=== PATIENT | male | born 1965 | race Asian ===

== ENCOUNTER 2017-05-31 14:57 | Inpatient (IN) | payer MEDICAID ==
[~2017-05-31] VITALS: Ht 167.6 cm; Wt 95.5 kg
[~2017-05-31 14:57] MED LIST: ALBU8.5H8 INH; AMLO10TA PO; ATOR40TA PO; CLON0.1T PO; FAMO20TA8 PO; FLO110IN INH; FURO-149 PO; ISOS10TA8 PO; LABE100T PO; LISI-600 PO; PANT40TA4 PO; POTA-82 PO
[2017-05-31] MEDS ORDERED: aspirin 81mg tab.chew PO ONE (15:15)
[2017-05-31 15:25] LABS: BASOPHILS % (AUTO) 0.3 % (0-1); EOSINOPHILS # (AUTO) 0.2 X10'3 (0-0.9); EOSINOPHILS % (AUTO) 1.7 % (0-6); HEMATOCRIT 45.4 % (42.0-52.0); HEMOGLOBIN 15.8 g/dl (14.0-17.9); LYMPHOCYTES # (AUTO) 1.8 X10'3 (1.1-4.8); LYMPHOCYTES % (AUTO) 19.8 % (21-51); MEAN CORPUSCULAR HEMOGLOBIN 29.7 PG (27.0-31.0); MEAN CORPUSCULAR HGB CONC 34.9 % (33.0-36.5); MEAN CORPUSCULAR VOLUME 85.2 FL (78-98); MONOCYTES # (AUTO) 0.7 X10'3 (0-0.9); MONOCYTES % (AUTO) 7.5 % (2-12); NEUTROPHILS # (AUTO) 6.5 X10'3 (1.8-7.7); NEUTROPHILS % (AUTO) 70.7 % (42-75); PLATELET COUNT 147 X10'3 (140-440); RED BLOOD COUNT 5.33 X10'6 (4.70-6.10); RED CELL DISTRIBUTION WIDTH 15.8 % (11.5-14.5); WHITE BLOOD COUNT 9.2 X10'3 (4.5-11.0)
[2017-05-31] MEDS ORDERED: nitroGLYCERIN 1gm ointment UD TP ONE (15:25)
[2017-05-31] MEDS ORDERED: nitroGLYCERIN 0.4mg SUBLingual tab SL PRN (15:25)
[2017-05-31] MEDS ORDERED: furosemide 10 MG/1 ML 10ml inj IV ONE (15:30)
[2017-05-31 15:35] LABS: PARTIAL THROMBOPLASTIN TIME 27 SECONDS (22-32); PROTHROMBIN TIME 9.9 SECONDS (9.0-12.0)
[2017-05-31 15:47] LABS: ALANINE AMINOTRANSFERASE 68 U/L (12-78); ALBUMIN 2.8 G/DL (3.4-5.0); ALBUMIN/GLOBULIN RATIO 0.8 (1.1-1.5); ALKALINE PHOSPHATASE 89 IU/L (46-116); ANION GAP 2 (8-16); BILIRUBIN,TOTAL 1.5 MG/DL (0.1-1.0); BLOOD UREA NITROGEN 27 MG/DL (7-18); BUN/CREATININE RATIO 15.1 (5.4-32.0); CALCIUM 8.6 MG/DL (8.5-10.1); CHLORIDE 103 MMOL/L (99-107); CREATININE 1.79 MG/DL (0.60-1.10); GLUCOSE 143 MG/DL (70-104); POTASSIUM 3.4 MMOL/L (3.5-5.1); SODIUM 143 MMOL/L (135-145); TOTAL PROTEIN 6.2 G/DL (6.4-8.2); eGFR 40 ML/MIN
[2017-05-31 15:59] LABS: ASPARTATE AMINO TRANSFERASE 29 U/L (10-37)
[2017-05-31] MEDS ORDERED: LOSA50TA3 PO (16:18)
[2017-05-31 19:20] VITALS: BP 178/134
[2017-05-31] MEDS ORDERED: non-formulary drug (Albuterol Sulfate (Proair Hfa) 2 PUFFS) INH SCH (19:40)
[2017-05-31] MEDS ORDERED: albuterol 2.5 MG/3 ML nebule NEB PRN (19:45)
[2017-05-31] MEDS ORDERED: amLODIPine 5mg tablet PO ONE (19:50)
[2017-05-31] MEDS ORDERED: dextrose 50%-water 50ml dispensing syringe IV PRN ×2 (19:55)
[2017-05-31] MEDS ORDERED: MESSAGE TO PHARMACY PO ONE (19:55)
[2017-05-31] MEDS ORDERED: glucagon, human recombinant 1mg kit SUBCUT PRN (19:55)
[2017-05-31] MEDS ORDERED: dextrose ORAL solution 15 GM/59 ML bottle PO PRN ×2 (19:55)
[2017-05-31] MEDS: ISOSORBIDE MONONITRATE 10MG TABLET PO SCH (20:00)
[2017-05-31] MEDS: lisinopril 20mg tablet PO SCH (20:09)
[2017-05-31] MEDS: labetalol 100mg tablet PO SCH (20:09)
[2017-05-31] MEDS: enoxaparin 40mg/0.4ml syringe SUBCUT SCH (20:13)
[2017-05-31] MEDS: K and/or MAG REPLACEMENT MC SCH (20:50)
[2017-05-31] MEDS ORDERED: potassium Cl 40MEQ/NS 500ml 500 ML IV PRN ×2 (20:50)
[2017-05-31] MEDS ORDERED: potassium Cl 20 mEq SR tablet PO PRN (20:50)
[2017-05-31] MEDS ORDERED: amLODIPine 5mg tablet PO SCH (21:00)
[2017-05-31] MEDS: potassium Cl 20 mEq SR tablet PO PRN (21:35)
[2017-05-31] MEDS: insulin glargine (Lantus) pen - multi-dose SQ SCH (21:39)
[2017-05-31 22:00] VITALS: BP_SYST 165; BP_SYST 197; BP_DIAS 112; BP_DIAS 134
[2017-05-31] MEDS: acetaminophen 325mg tablet PO PRN (22:02)
[2017-06-01] VITALS (10 sets, daily range): BP systolic 139–205; BP diastolic 96–137
[2017-06-01] MEDS ORDERED: cloNIDine 0.1 mg tablet PO PRN (03:35)
[2017-06-01 05:07] LABS: BASOPHILS % (AUTO) 0.4 % (0-1); EOSINOPHILS # (AUTO) 0.1 X10'3 (0-0.9); EOSINOPHILS % (AUTO) 0.8 % (0-6); HEMATOCRIT 46.1 % (42.0-52.0); HEMOGLOBIN 15.9 g/dl (14.0-17.9); LYMPHOCYTES # (AUTO) 1.7 X10'3 (1.1-4.8); LYMPHOCYTES % (AUTO) 20.4 % (21-51); MEAN CORPUSCULAR HEMOGLOBIN 29.3 PG (27.0-31.0); MEAN CORPUSCULAR HGB CONC 34.5 % (33.0-36.5); MEAN PLATELET VOLUME 9.5 FL (7.4-10.4); MONOCYTES # (AUTO) 0.4 X10'3 (0-0.9); MONOCYTES % (AUTO) 5.1 % (2-12); NEUTROPHILS # (AUTO) 6.2 X10'3 (1.8-7.7); NEUTROPHILS % (AUTO) 73.3 % (42-75); PLATELET COUNT 127 X10'3 (140-440); RED BLOOD COUNT 5.42 X10'6 (4.70-6.10); RED CELL DISTRIBUTION WIDTH 15.7 % (11.5-14.5); WHITE BLOOD COUNT 8.5 X10'3 (4.5-11.0)
[2017-06-01 05:20] LABS: PROTHROMBIN TIME 9.9 SECONDS (9.0-12.0)
[2017-06-01 05:28] LABS: ALBUMIN 2.9 G/DL (3.4-5.0); ANION GAP 3 (8-16); BLOOD UREA NITROGEN 28 MG/DL (7-18); BUN/CREATININE RATIO 15.6 (5.4-32.0); CALCIUM 8.6 MG/DL (8.5-10.1); CHLORIDE 102 MMOL/L (99-107); CREATININE 1.79 MG/DL (0.60-1.10); GLUCOSE 185 MG/DL (70-104); MAGNESIUM 1.9 MG/DL (1.5-2.4); POTASSIUM 3.3 MMOL/L (3.5-5.1); SODIUM 140 MMOL/L (135-145); TOTAL CARBON DIOXIDE 34.6 MMOL/L (24-32); eGFR 40 ML/MIN
[2017-06-01] MEDS: acetaminophen 325mg tablet PO PRN (07:38)
[2017-06-01] MEDS: losartan 50mg tablet PO SCH (07:38)
[2017-06-01] MEDS: lisinopril 20mg tablet PO SCH ×2 (07:38→19:32)
[2017-06-01] MEDS: potassium Cl 20 mEq SR tablet PO SCH (07:38)
[2017-06-01] MEDS: labetalol 100mg tablet PO SCH ×2 (07:39→19:32)
[2017-06-01] MEDS: furosemide 40mg tablet PO SCH (07:40)
[2017-06-01] MEDS: atorvastatin 20mg tablet PO SCH (07:41)
[2017-06-01] MEDS: enoxaparin 40mg/0.4ml syringe SUBCUT SCH (07:50)
[2017-06-01] MEDS: K and/or MAG REPLACEMENT MC SCH (08:00)
[2017-06-01] MEDS ORDERED: non-formulary drug (Atorvastatin Calcium* (Lipitor*) 1 TAB) PO SCH (08:00)
[2017-06-01] MEDS: ISOSORBIDE MONONITRATE 10MG TABLET PO SCH ×2 (08:00→19:32)
[2017-06-01] MEDS ORDERED: non-formulary drug (Potassium Chloride 1 TAB) PO SCH (08:00)
[2017-06-01] MEDS: potassium Cl 20 mEq SR tablet PO PRN ×3 (09:07→21:16)
[2017-06-01] MEDS ORDERED: cloNIDine 0.1 mg tablet PO ONE ×2 (09:40→12:45)
[2017-06-01] MEDS ORDERED: amLODIPine 5mg tablet PO ONE (09:40)
[2017-06-01] MEDS: insulin Lispro (HumaLOG) vial - multi-dose SQ SCH ×2 (10:26→13:47)
[2017-06-01] MEDS ORDERED: HYDROchlorothiazide 25mg tablet PO ONE (13:00)
[2017-06-01] MEDS: amLODIPine 5mg tablet PO SCH (19:32)
[2017-06-01] MEDS: insulin glargine (Lantus) pen - multi-dose SQ SCH (21:15)
[2017-06-02] VITALS (9 sets, daily range): BP systolic 106–184; BP diastolic 76–124
[2017-06-02 07:22] LABS: BASOPHILS % (AUTO) 0.2 % (0-1); EOSINOPHILS # (AUTO) 0.1 X10'3 (0-0.9); EOSINOPHILS % (AUTO) 1.7 % (0-6); HEMOGLOBIN 15.8 g/dl (14.0-17.9); LYMPHOCYTES # (AUTO) 1.7 X10'3 (1.1-4.8); LYMPHOCYTES % (AUTO) 20.3 % (21-51); MEAN CORPUSCULAR HEMOGLOBIN 29.3 PG (27.0-31.0); MEAN CORPUSCULAR HGB CONC 34.3 % (33.0-36.5); MEAN CORPUSCULAR VOLUME 85.3 FL (78-98); MEAN PLATELET VOLUME 8.1 FL (7.4-10.4); MONOCYTES # (AUTO) 0.5 X10'3 (0-0.9); MONOCYTES % (AUTO) 6.1 % (2-12); NEUTROPHILS % (AUTO) 71.7 % (42-75); PLATELET COUNT 134 X10'3 (140-440); RED BLOOD COUNT 5.39 X10'6 (4.70-6.10); RED CELL DISTRIBUTION WIDTH 16.4 % (11.5-14.5); WHITE BLOOD COUNT 8.4 X10'3 (4.5-11.0)
[2017-06-02 07:34] LABS: ALANINE AMINOTRANSFERASE 58 U/L (12-78); ALBUMIN 2.8 G/DL (3.4-5.0); ALBUMIN/GLOBULIN RATIO 0.8 (1.1-1.5); ALKALINE PHOSPHATASE 75 IU/L (46-116); ANION GAP 1 (8-16); ASPARTATE AMINO TRANSFERASE 21 U/L (10-37); BILIRUBIN,TOTAL 1.6 MG/DL (0.1-1.0); BLOOD UREA NITROGEN 33 MG/DL (7-18); BUN/CREATININE RATIO 20.6 (5.4-32.0); CALCIUM 8.9 MG/DL (8.5-10.1); CHLORIDE 103 MMOL/L (99-107); GLUCOSE 138 MG/DL (70-104); POTASSIUM 3.5 MMOL/L (3.5-5.1); SODIUM 141 MMOL/L (135-145); TOTAL CARBON DIOXIDE 37.4 MMOL/L (24-32); TOTAL PROTEIN 6.2 G/DL (6.4-8.2); eGFR 46 ML/MIN
[2017-06-02] MEDS: furosemide 40mg tablet PO SCH (07:43)
[2017-06-02] MEDS: atorvastatin 20mg tablet PO SCH (07:43)
[2017-06-02] MEDS: losartan 50mg tablet PO SCH (07:43)
[2017-06-02] MEDS: amLODIPine 5mg tablet PO SCH ×2 (07:43→20:54)
[2017-06-02] MEDS: potassium Cl 20 mEq SR tablet PO SCH (07:44)
[2017-06-02] MEDS: labetalol 100mg tablet PO SCH ×2 (07:44→20:54)
[2017-06-02] MEDS: enoxaparin 40mg/0.4ml syringe SUBCUT SCH (07:44)
[2017-06-02] MEDS: ISOSORBIDE MONONITRATE 10MG TABLET PO SCH ×2 (07:44→20:55)
[2017-06-02] MEDS: lisinopril 20mg tablet PO SCH (07:44)
[2017-06-02] MEDS: K and/or MAG REPLACEMENT MC SCH (07:45)
[2017-06-02] MEDS: insulin Lispro (HumaLOG) vial - multi-dose SQ SCH ×3 (08:42→18:41)
[2017-06-02] MEDS: NIFEdipine XL 30mg tablet PO SCH (12:14)
[2017-06-02] MEDS: chlorthalidone 25mg tablet PO SCH (12:14)
[2017-06-02] MEDS ORDERED: normal saline 500ml IV soln 500 ML IV ONE (13:25)
[2017-06-02] MEDS: insulin glargine (Lantus) pen - multi-dose SQ SCH (20:51)
[2017-06-03] VITALS (7 sets, daily range): BP systolic 101–133; BP diastolic 73–85
[2017-06-03] MEDS: acetaminophen 325mg tablet PO PRN ×2 (01:56→13:12)
[2017-06-03] MEDS ORDERED: calcium carbonate 500mg chew tablet PO PRN (06:30)
[2017-06-03] MEDS: NIFEdipine XL 30mg tablet PO SCH (07:58)
[2017-06-03] MEDS: potassium Cl 20 mEq SR tablet PO SCH (07:59)
[2017-06-03] MEDS: labetalol 100mg tablet PO SCH ×2 (07:59→20:16)
[2017-06-03] MEDS: atorvastatin 20mg tablet PO SCH (07:59)
[2017-06-03] MEDS: K and/or MAG REPLACEMENT MC SCH (08:00)
[2017-06-03] MEDS: ISOSORBIDE MONONITRATE 10MG TABLET PO SCH ×2 (08:00→20:16)
[2017-06-03] MEDS: enoxaparin 40mg/0.4ml syringe SUBCUT SCH (08:00)
[2017-06-03] MEDS: furosemide 40mg tablet PO SCH (08:00)
[2017-06-03] MEDS: insulin Lispro (HumaLOG) vial - multi-dose SQ SCH ×3 (08:05→18:59)
[2017-06-03 08:18] LABS: ANION GAP 4 (8-16); BLOOD UREA NITROGEN 40 MG/DL (7-18); CALCIUM 8.9 MG/DL (8.5-10.1); CHLORIDE 104 MMOL/L (99-107); GLUCOSE 155 MG/DL (70-104); POTASSIUM 3.5 MMOL/L (3.5-5.1); SODIUM 142 MMOL/L (135-145); TOTAL CARBON DIOXIDE 33.8 MMOL/L (24-32); eGFR 36 ML/MIN
[2017-06-03] MEDS: chlorthalidone 25mg tablet PO SCH (10:10)
[2017-06-03] MEDS: losartan 50mg tablet PO SCH (10:10)
[2017-06-03] MEDS: amLODIPine 5mg tablet PO SCH (10:10)
[2017-06-03] MEDS: insulin glargine (Lantus) pen - multi-dose SQ SCH (20:58)
[2017-06-04] VITALS (8 sets, daily range): BP systolic 96–145; BP diastolic 67–96
[2017-06-04 07:27] LABS: ALBUMIN 2.9 G/DL (3.4-5.0); ANION GAP 6 (8-16); BLOOD UREA NITROGEN 52 MG/DL (7-18); BUN/CREATININE RATIO 23.6 (5.4-32.0); CALCIUM 8.7 MG/DL (8.5-10.1); CHLORIDE 104 MMOL/L (99-107); GLUCOSE 129 MG/DL (70-104); POTASSIUM 3.6 MMOL/L (3.5-5.1); SODIUM 145 MMOL/L (135-145); TOTAL CARBON DIOXIDE 35.5 MMOL/L (24-32); eGFR 32 ML/MIN
[2017-06-04] MEDS: atorvastatin 20mg tablet PO SCH (07:42)
[2017-06-04] MEDS: potassium Cl 20 mEq SR tablet PO SCH (07:42)
[2017-06-04] MEDS: NIFEdipine XL 30mg tablet PO SCH (07:42)
[2017-06-04] MEDS: labetalol 100mg tablet PO SCH ×2 (07:43→20:49)
[2017-06-04] MEDS: furosemide 40mg tablet PO SCH (07:43)
[2017-06-04] MEDS: enoxaparin 40mg/0.4ml syringe SUBCUT SCH (07:45)
[2017-06-04] MEDS: ISOSORBIDE MONONITRATE 10MG TABLET PO SCH ×2 (08:00→20:49)
[2017-06-04] MEDS: chlorthalidone 25mg tablet PO SCH (08:00)
[2017-06-04] MEDS: losartan 50mg tablet PO SCH (08:00)
[2017-06-04] MEDS: K and/or MAG REPLACEMENT MC SCH (08:00)
[2017-06-04] MEDS: insulin Lispro (HumaLOG) vial - multi-dose SQ SCH ×3 (08:56→18:45)
[2017-06-04 13:57] LABS: ALBUMIN 3.1 G/DL (3.4-5.0); ANION GAP 7 (8-16); BLOOD UREA NITROGEN 57 MG/DL (7-18); BUN/CREATININE RATIO 24.8 (5.4-32.0); CALCIUM 9.1 MG/DL (8.5-10.1); CHLORIDE 103 MMOL/L (99-107); GLUCOSE 120 MG/DL (70-104); POTASSIUM 3.6 MMOL/L (3.5-5.1); SODIUM 145 MMOL/L (135-145); TOTAL CARBON DIOXIDE 35.2 MMOL/L (24-32); eGFR 30 ML/MIN
[2017-06-04] MEDS: acetaminophen 325mg tablet PO PRN (20:49)
[2017-06-04] MEDS: insulin glargine (Lantus) pen - multi-dose SQ SCH (20:52)
[2017-06-05 03:00] VITALS: BP 123/79
[2017-06-05 05:04] LABS: ALBUMIN 3.2 G/DL (3.4-5.0); ANION GAP 4 (8-16); BLOOD UREA NITROGEN 53 MG/DL (7-18); BUN/CREATININE RATIO 26.5 (5.4-32.0); CHLORIDE 105 MMOL/L (99-107); GLUCOSE 130 MG/DL (70-104); POTASSIUM 3.8 MMOL/L (3.5-5.1); SODIUM 144 MMOL/L (135-145); TOTAL CARBON DIOXIDE 34.7 MMOL/L (24-32); eGFR 36 ML/MIN
[2017-06-05 05:30] VITALS: BP 156/106
[2017-06-05] MEDS: K and/or MAG REPLACEMENT MC SCH (06:44)
[2017-06-05 08:00] VITALS: BP_SYST 117; BP_SYST 125; BP_SYST 135; BP_DIAS 83; BP_DIAS 88; BP_DIAS 96
[2017-06-05] MEDS: ISOSORBIDE MONONITRATE 10MG TABLET PO SCH (08:00)
[2017-06-05] MEDS ORDERED: furosemide 20MG tablet PO SCH (08:00)
[2017-06-05] MEDS: NIFEdipine XL 30mg tablet PO SCH (08:19)
[2017-06-05] MEDS: furosemide 20MG tablet PO SCH ×2 (08:20→18:51)
[2017-06-05] MEDS: atorvastatin 20mg tablet PO SCH (08:20)
[2017-06-05] MEDS: labetalol 100mg tablet PO SCH ×2 (08:20→18:50)
[2017-06-05] MEDS: potassium Cl 20 mEq SR tablet PO SCH (08:20)
[2017-06-05] MEDS: enoxaparin 40mg/0.4ml syringe SUBCUT SCH (08:22)
[2017-06-05] MEDS: insulin Lispro (HumaLOG) vial - multi-dose SQ SCH ×2 (08:27→18:47)
[2017-06-05 11:00] VITALS: BP 142/97
[2017-06-05 15:00] VITALS: BP 141/95
== END 2017-06-05 19:15 | disposition home or self-care (01) | DRG 199 ==
LOC: ER 14:58 → ED HOLD 16:08 → PCU 3S 19:22
PROVIDERS: ADMIT Family Medicine; ATTEND Family Medicine
DX: I16.0 Hypertensive urgency (principal); E11.22 Type 2 diabetes mellitus with diabetic chronic kidney disease; I50.9 Heart failure, unspecified; I11.0 Hypertensive heart disease with heart failure; I71.2 Thoracic aortic aneurysm, without rupture; I13.0 Hypertensive heart and chronic kidney disease with heart failure and stage 1 through stage 4 chronic kidney disease, or unspecified chronic kidney disease; E78.00 Pure hypercholesterolemia, unspecified; E78.5 Hyperlipidemia, unspecified; G47.33 Obstructive sleep apnea (adult) (pediatric); I25.10 Atherosclerotic heart disease of native coronary artery without angina pectoris; I45.10 Unspecified right bundle-branch block; I08.1 Rheumatic disorders of both mitral and tricuspid valves; J44.9 Chronic obstructive pulmonary disease, unspecified; N18.9 Chronic kidney disease, unspecified; Z79.4 Long term (current) use of insulin; Z79.899 Other long term (current) drug therapy; Z82.49 Family history of ischemic heart disease and other diseases of the circulatory system; Z90.49 Acquired absence of other specified parts of digestive tract
CPT/HCPCS: 36415; 71045; 80048; 80053; 82948; 83036; 83735; 83880; 84484; 85025; 85610; 85730; 87070; 93005; 93306; 96374; 99285; J1650; J1815; J1940; J7030

== ENCOUNTER 2017-07-20 12:14 | Emergency (ER) | payer MEDICAID ==
[~2017-07-20] VITALS: Ht 167.6 cm; Wt 93.0 kg
[~2017-07-20 12:14] MED LIST changes: -AMLO10TA PO; -CLON0.1T PO; -FAMO20TA8 PO; -FLO110IN INH; +LOSA50TA3 PO; -PANT40TA4 PO
[2017-07-20 13:10] LABS: PARTIAL THROMBOPLASTIN TIME 28 SECONDS (22-32)
[2017-07-20 13:16] LABS: ALANINE AMINOTRANSFERASE 29 U/L (12-78); ALBUMIN 3.7 G/DL (3.4-5.0); ALBUMIN/GLOBULIN RATIO 0.9 (1.1-1.5); ALKALINE PHOSPHATASE 80 IU/L (46-116); ANION GAP 8 (8-16); ASPARTATE AMINO TRANSFERASE 22 U/L (10-37); BILIRUBIN,TOTAL 1.1 MG/DL (0.1-1.0); BLOOD UREA NITROGEN 44 MG/DL (7-18); BUN/CREATININE RATIO 18.1 (5.4-32.0); CALCIUM 8.9 MG/DL (8.5-10.1); CHLORIDE 103 MMOL/L (99-107); CREATININE 2.43 MG/DL (0.60-1.10); GLUCOSE 263 MG/DL (70-104); POTASSIUM 3.3 MMOL/L (3.5-5.1); SODIUM 144 MMOL/L (135-145); TOTAL CARBON DIOXIDE 33.4 MMOL/L (24-32); TOTAL PROTEIN 7.7 G/DL (6.4-8.2); eGFR 28 ML/MIN
[2017-07-20 13:35] LABS: BASOPHILS % (AUTO) 0.4 % (0-1); EOSINOPHILS # (AUTO) 0.1 X10'3 (0-0.9); EOSINOPHILS % (AUTO) 1.7 % (0-6); HEMATOCRIT 43.1 % (42.0-52.0); HEMOGLOBIN 15.2 g/dl (14.0-17.9); LYMPHOCYTES # (AUTO) 2.1 X10'3 (1.1-4.8); LYMPHOCYTES % (AUTO) 33.7 % (21-51); MEAN CORPUSCULAR HEMOGLOBIN 31.3 PG (27.0-31.0); MEAN PLATELET VOLUME 9.1 FL (7.4-10.4); MONOCYTES # (AUTO) 0.6 X10'3 (0-0.9); MONOCYTES % (AUTO) 10.2 % (2-12); NEUTROPHILS # (AUTO) 3.4 X10'3 (1.8-7.7); PLATELET COUNT 149 X10'3 (140-440); RED BLOOD COUNT 4.84 X10'6 (4.70-6.10); RED CELL DISTRIBUTION WIDTH 12.7 % (11.5-14.5); WHITE BLOOD COUNT 6.2 X10'3 (4.5-11.0)
[2017-07-20 13:36] LABS: MEAN CORPUSCULAR HGB CONC 35.2 % (33.0-36.5)
[2017-07-20] MEDS ORDERED: predniSONE 20 mg tablet PO ONE (13:55)
[2017-07-20] MEDS ORDERED: ipratropium/albuterol 3ml nebule NEB ONE (13:55)
[2017-07-20] MEDS ORDERED: potassium Cl 20 mEq SR tablet PO STA (14:46)
[2017-07-20] MEDS ORDERED: PRED20TA PO (15:57)
[2017-07-20] MEDS ORDERED: ALBU6.7H INH (15:57)
[2017-07-20 16:14] VITALS: BP 142/109
== END 2017-07-20 16:15 | disposition home or self-care (01) ==
LOC: ER 12:14
DX: J40 Bronchitis, not specified as acute or chronic (principal); E11.9 Type 2 diabetes mellitus without complications; I11.0 Hypertensive heart disease with heart failure; I50.9 Heart failure, unspecified; E78.00 Pure hypercholesterolemia, unspecified; Z90.49 Acquired absence of other specified parts of digestive tract; Z79.899 Other long term (current) drug therapy
CPT/HCPCS: 36415; 71046; 80053; 84484; 85025; 85610; 85730; 87502; 87503; 94640; 94760; 99285; J7512

== ENCOUNTER 2017-08-20 12:15 | Emergency (ER) | payer MEDICAID ==
[~2017-08-20] VITALS: Ht 180.3 cm; Wt 100.0 kg
[~2017-08-20 12:15] MED LIST changes: +ALBU6.7H INH
[2017-08-20 12:38] LABS: BASOPHILS % (AUTO) 0.4 % (0-1); EOSINOPHILS # (AUTO) 0.2 X10'3 (0-0.9); EOSINOPHILS % (AUTO) 3.4 % (0-6); HEMATOCRIT 44.5 % (42.0-52.0); HEMOGLOBIN 15.7 g/dl (14.0-17.9); LYMPHOCYTES % (AUTO) 34.2 % (21-51); MEAN CORPUSCULAR HEMOGLOBIN 31.4 PG (27.0-31.0); MEAN CORPUSCULAR HGB CONC 35.3 % (33.0-36.5); MEAN CORPUSCULAR VOLUME 88.9 FL (78-98); MEAN PLATELET VOLUME 7.5 FL (7.4-10.4); MONOCYTES # (AUTO) 0.5 X10'3 (0-0.9); MONOCYTES % (AUTO) 8.5 % (2-12); NEUTROPHILS # (AUTO) 3.1 X10'3 (1.8-7.7); NEUTROPHILS % (AUTO) 53.5 % (42-75); PLATELET COUNT 154 X10'3 (140-440); RED CELL DISTRIBUTION WIDTH 13.2 % (11.5-14.5); WHITE BLOOD COUNT 5.7 X10'3 (4.5-11.0)
[2017-08-20 12:49] LABS: PARTIAL THROMBOPLASTIN TIME 29 SECONDS (22-32); PROTHROMBIN TIME 10.2 SECONDS (9.0-12.0)
[2017-08-20 13:00] LABS: ALANINE AMINOTRANSFERASE 34 U/L (12-78); ALBUMIN 3.6 G/DL (3.4-5.0); ALKALINE PHOSPHATASE 64 IU/L (46-116); ANION GAP 9 (8-16); ASPARTATE AMINO TRANSFERASE 23 U/L (10-37); BILIRUBIN,TOTAL 1.4 MG/DL (0.1-1.0); BLOOD UREA NITROGEN 33 MG/DL (7-18); BUN/CREATININE RATIO 14.8 (5.4-32.0); CALCIUM 9.1 MG/DL (8.5-10.1); CHLORIDE 105 MMOL/L (99-107); CREATININE 2.23 MG/DL (0.60-1.10); GLUCOSE 152 MG/DL (70-104); POTASSIUM 3.5 MMOL/L (3.5-5.1); SODIUM 144 MMOL/L (135-145); TOTAL CARBON DIOXIDE 29.6 MMOL/L (24-32); TOTAL PROTEIN 7.2 G/DL (6.4-8.2); eGFR 31 ML/MIN
[2017-08-20] MEDS ORDERED: SIME80TA16 PO (13:22)
[2017-08-20] MEDS ORDERED: LEVO500T89 PO (13:22)
[2017-08-20 13:31] VITALS: BP 141/91
== END 2017-08-20 13:33 | disposition home or self-care (01) ==
LOC: ER 12:16
DX: R07.9 Chest pain, unspecified (principal); I11.0 Hypertensive heart disease with heart failure; I50.9 Heart failure, unspecified; E11.9 Type 2 diabetes mellitus without complications; E78.00 Pure hypercholesterolemia, unspecified; Z90.49 Acquired absence of other specified parts of digestive tract; Z99.81 Dependence on supplemental oxygen; Z79.899 Other long term (current) drug therapy
CPT/HCPCS: 36415; 71045; 80053; 83880; 84484; 85025; 85610; 85730; 93005; 99285

== ENCOUNTER 2017-08-29 19:37 | Emergency (ER) | payer MEDICAID ==
[~2017-08-29] VITALS: Ht 167.6 cm; Wt 94.6 kg
[~2017-08-29 19:37] MED LIST changes: +LEVO500T89 PO; +SIME80TA16 PO
[2017-08-29] MEDS ORDERED: LIDOcaine Viscous 15ml cup MM ONE (19:55)
[2017-08-29 19:58] LABS: BASOPHILS % (AUTO) 0.5 % (0-1); EOSINOPHILS # (AUTO) 0.2 X10'3 (0-0.9); EOSINOPHILS % (AUTO) 2.5 % (0-6); HEMATOCRIT 48.3 % (42.0-52.0); LYMPHOCYTES # (AUTO) 2.6 X10'3 (1.1-4.8); LYMPHOCYTES % (AUTO) 36.2 % (21-51); MEAN CORPUSCULAR HGB CONC 35.1 % (33.0-36.5); MEAN CORPUSCULAR VOLUME 88.2 FL (78-98); MEAN PLATELET VOLUME 8.1 FL (7.4-10.4); MONOCYTES # (AUTO) 0.9 X10'3 (0-0.9); MONOCYTES % (AUTO) 12.1 % (2-12); NEUTROPHILS # (AUTO) 3.5 X10'3 (1.8-7.7); NEUTROPHILS % (AUTO) 48.7 % (42-75); PLATELET COUNT 171 X10'3 (140-440); RED BLOOD COUNT 5.47 X10'6 (4.70-6.10); RED CELL DISTRIBUTION WIDTH 12.4 % (11.5-14.5); WHITE BLOOD COUNT 7.3 X10'3 (4.5-11.0)
[2017-08-29 20:01] LABS: CLARITY,URINE Clear (Clear); COLOR,URINE Yellow (Yellow); GLUCOSE, URINE Negative (Neg); KETONES,URINE Negative (Neg); LEUKOCYTE ESTERASE ,URINE Negative (Neg); NITRITES, URINE Negative (Neg); OCCULT BLOOD,URINE Negative (Neg); PROTEIN,URINE 300 mg/dl (Neg); UROBILINOGEN,URINE 0.2 E.U/dL (0.2-1.0)
[2017-08-29 20:03] LABS: UA COLLECTION TYPE CLN CATCH MIDSTREAM
[2017-08-29 20:08] LABS: BACTERIA,URINE FEW /HPF (Neg); MUCUS STRANDS NONE SEEN /LPF (Neg); RBC,URINE 0-2 /HPF (0-2); SQUAMOUS EPITHELIAL CELL,UR FEW /LPF (FEW); WBC,URINE NONE SEEN /HPF (0-4)
[2017-08-29 20:09] LABS: PROTHROMBIN TIME 10.2 SECONDS (9.0-12.0)
[2017-08-29 20:14] LABS: ALANINE AMINOTRANSFERASE 38 U/L (12-78); ALKALINE PHOSPHATASE 83 IU/L (46-116); ANION GAP 10 (8-16); ASPARTATE AMINO TRANSFERASE 24 U/L (10-37); BILIRUBIN,TOTAL 1.2 MG/DL (0.1-1.0); BLOOD UREA NITROGEN 38 MG/DL (7-18); BUN/CREATININE RATIO 14.8 (5.4-32.0); CALCIUM 9.6 MG/DL (8.5-10.1); CHLORIDE 100 MMOL/L (99-107); CREATININE 2.57 MG/DL (0.60-1.10); GLUCOSE 151 MG/DL (70-104); SODIUM 144 MMOL/L (135-145); TOTAL CARBON DIOXIDE 34.5 MMOL/L (24-32); TOTAL PROTEIN 7.9 G/DL (6.4-8.2); eGFR 27 ML/MIN
[2017-08-29 20:16] LABS: POTASSIUM 2.9 MMOL/L (3.5-5.1)
[2017-08-29] MEDS ORDERED: potassium Cl 20 mEq SR tablet PO STA (20:16)
[2017-08-29] MEDS ORDERED: normal saline 1000ML IV soln IVB ONE (20:20)
[2017-08-29] MEDS ORDERED: POTA20TA19 PO (20:34)
[2017-08-29] MEDS ORDERED: SUCR1TAB34 PO (20:34)
[2017-08-29] MEDS ORDERED: OMEP40CA37 PO (20:34)
[2017-08-29 21:09] VITALS: BP 159/109
== END 2017-08-29 21:11 | disposition home or self-care (01) ==
LOC: ER 19:37
DX: E86.0 Dehydration (principal); E87.6 Hypokalemia; E11.9 Type 2 diabetes mellitus without complications; E78.00 Pure hypercholesterolemia, unspecified; I11.0 Hypertensive heart disease with heart failure; I50.9 Heart failure, unspecified; Z90.49 Acquired absence of other specified parts of digestive tract; Z79.899 Other long term (current) drug therapy
CPT/HCPCS: 36415; 74176; 80053; 81001; 85025; 85610; 99285; J7030

== ENCOUNTER 2017-12-04 14:55 | Emergency (ER) | payer MEDICAID ==
[~2017-12-04] VITALS: Ht 578.2 cm; Wt 97.6 kg
[~2017-12-04 14:55] MED LIST changes: -LEVO500T89 PO; +SUCR1TAB34 PO
[2017-12-04 14:59] VITALS: BP 148/83
[2017-12-04] MEDS ORDERED: LEVO500T2 PO (15:20)
[2017-12-04] MEDS ORDERED: GUAI-178 PO (15:20)
== END 2017-12-04 15:27 | disposition home or self-care (01) ==
LOC: ER 14:56
DX: R05 Cough (principal); I11.0 Hypertensive heart disease with heart failure; I50.9 Heart failure, unspecified; E11.9 Type 2 diabetes mellitus without complications; E78.00 Pure hypercholesterolemia, unspecified; Z90.49 Acquired absence of other specified parts of digestive tract; Z79.899 Other long term (current) drug therapy
CPT/HCPCS: 99283

== ENCOUNTER 2017-12-23 17:47 | Emergency (ER) | payer MEDICAID ==
[~2017-12-23] VITALS: Ht 167.6 cm; Wt 98.5 kg
[~2017-12-23 17:47] MED LIST changes: +GUAI-178 PO; -LABE100T PO; +LABE100T5 PO
[2017-12-23 17:48] VITALS: BP 150/103
== END 2017-12-23 19:18 | disposition home or self-care (01) ==
LOC: ER 17:48
DX: M72.2 Plantar fascial fibromatosis (principal); I11.0 Hypertensive heart disease with heart failure; I50.9 Heart failure, unspecified; E78.00 Pure hypercholesterolemia, unspecified; E11.9 Type 2 diabetes mellitus without complications; Z90.49 Acquired absence of other specified parts of digestive tract; Z79.899 Other long term (current) drug therapy
CPT/HCPCS: 73630; 99284

== ENCOUNTER 2017-12-26 20:43 | Emergency (ER) | payer MEDICAID ==
[~2017-12-26] VITALS: Ht 167.6 cm; Wt 101.6 kg
[2017-12-26 20:53] VITALS: BP 157/113
[2017-12-26 21:27] LABS: BASOPHILS % (AUTO) 0.3 % (0-1); EOSINOPHILS # (AUTO) 0.2 X10'3 (0-0.9); EOSINOPHILS % (AUTO) 2.5 % (0-6); HEMATOCRIT 47.3 % (42.0-52.0); INR 0.9 INR; LYMPHOCYTES % (AUTO) 30.3 % (21-51); MEAN CORPUSCULAR HGB CONC 33.8 % (33.0-36.5); MEAN CORPUSCULAR VOLUME 85.8 FL (78-98); MEAN PLATELET VOLUME 8.9 FL (7.4-10.4); MONOCYTES # (AUTO) 0.7 X10'3 (0-0.9); MONOCYTES % (AUTO) 10.4 % (2-12); NEUTROPHILS # (AUTO) 3.7 X10'3 (1.8-7.7); NEUTROPHILS % (AUTO) 56.5 % (42-75); PARTIAL THROMBOPLASTIN TIME 32 SECONDS (22-32); PLATELET COUNT 148 X10'3 (140-440); PROTHROMBIN TIME 9.5 SECONDS (9.0-12.0); RED BLOOD COUNT 5.51 X10'6 (4.70-6.10); RED CELL DISTRIBUTION WIDTH 12.9 % (11.5-14.5); WHITE BLOOD COUNT 6.6 X10'3 (4.5-11.0)
[2017-12-26 21:30] LABS: ALANINE AMINOTRANSFERASE 41 U/L (12-78); ALBUMIN 3.3 G/DL (3.4-5.0); ALBUMIN/GLOBULIN RATIO 0.8 (1.1-1.5); ALKALINE PHOSPHATASE 98 IU/L (46-116); ANION GAP 7 (8-16); ASPARTATE AMINO TRANSFERASE 22 U/L (10-37); BILIRUBIN,TOTAL 0.8 MG/DL (0.1-1.0); BLOOD UREA NITROGEN 33 MG/DL (7-18); BUN/CREATININE RATIO 12.7 (5.4-32.0); CALCIUM 8.5 MG/DL (8.5-10.1); CHLORIDE 103 MMOL/L (99-107); GLUCOSE 147 MG/DL (70-104); POTASSIUM 3.6 MMOL/L (3.5-5.1); SODIUM 139 MMOL/L (135-145); TOTAL CARBON DIOXIDE 29.5 MMOL/L (24-32); TOTAL PROTEIN 7.5 G/DL (6.4-8.2); eGFR 26 ML/MIN
[2017-12-26] MEDS ORDERED: furosemide 10 MG/1 ML 10ml inj IV ONE (22:10)
== END 2017-12-26 22:27 | disposition home or self-care (01) ==
LOC: ER 20:44
DX: I11.0 Hypertensive heart disease with heart failure (principal); I50.9 Heart failure, unspecified; E78.00 Pure hypercholesterolemia, unspecified; E11.9 Type 2 diabetes mellitus without complications; Z90.49 Acquired absence of other specified parts of digestive tract; Z79.899 Other long term (current) drug therapy
CPT/HCPCS: 36415; 71045; 80053; 83880; 84484; 85025; 85610; 85730; 93005; 96374; 99285; J1940

== ENCOUNTER 2018-01-26 19:45 | Observation (INO) | payer MEDICAID ==
[~2018-01-26] VITALS: Ht 167.6 cm; Wt 97.8 kg
[2018-01-26 20:07] LABS: BASOPHILS % (AUTO) 0.6 % (0-1); EOSINOPHILS # (AUTO) 0.1 X10'3 (0-0.9); HEMATOCRIT 48.2 % (42.0-52.0); HEMOGLOBIN 16.5 g/dl (14.0-17.9); LYMPHOCYTES # (AUTO) 1.2 X10'3 (1.1-4.8); LYMPHOCYTES % (AUTO) 22.7 % (21-51); MEAN CORPUSCULAR HEMOGLOBIN 29.4 PG (27.0-31.0); MEAN CORPUSCULAR HGB CONC 34.2 % (33.0-36.5); MEAN CORPUSCULAR VOLUME 86.1 FL (78-98); MEAN PLATELET VOLUME 8.5 FL (7.4-10.4); MONOCYTES # (AUTO) 0.9 X10'3 (0-0.9); MONOCYTES % (AUTO) 17.1 % (2-12); NEUTROPHILS % (AUTO) 57.6 % (42-75); PLATELET COUNT 141 X10'3 (140-440); RED CELL DISTRIBUTION WIDTH 13.4 % (11.5-14.5); WHITE BLOOD COUNT 5.3 X10'3 (4.5-11.0)
[2018-01-26 20:16] LABS: PARTIAL THROMBOPLASTIN TIME 30 SECONDS (22-32); PROTHROMBIN TIME 10.2 SECONDS (9.0-12.0)
[2018-01-26 20:21] LABS: ALANINE AMINOTRANSFERASE 42 U/L (12-78); ALBUMIN 3.3 G/DL (3.4-5.0); ALBUMIN/GLOBULIN RATIO 0.8 (1.1-1.5); ALKALINE PHOSPHATASE 106 IU/L (46-116); ANION GAP 6 (8-16); ASPARTATE AMINO TRANSFERASE 33 U/L (10-37); BILIRUBIN,TOTAL 1.3 MG/DL (0.1-1.0); BLOOD UREA NITROGEN 44 MG/DL (7-18); BUN/CREATININE RATIO 13.9 (5.4-32.0); CALCIUM 8.8 MG/DL (8.5-10.1); CHLORIDE 101 MMOL/L (99-107); CREATININE 3.17 MG/DL (0.60-1.10); GLUCOSE 124 MG/DL (70-104); SODIUM 138 MMOL/L (135-145); TOTAL CARBON DIOXIDE 30.9 MMOL/L (24-32); TOTAL PROTEIN 7.2 G/DL (6.4-8.2); eGFR 21 ML/MIN
[2018-01-26 20:25] LABS: POTASSIUM 3.6 MMOL/L (3.5-5.1)
[2018-01-26] MEDS ORDERED: normal saline 1000ML IV soln IVB ONE (21:40)
[2018-01-26] MEDS ORDERED: LABE100T5 PO (23:53)
[2018-01-26] MEDS ORDERED: NIFE90TA2 PO (23:53)
[2018-01-26] MEDS ORDERED: BUME1TAB4 PO (23:53)
[2018-01-27] MEDS ORDERED: acetaminophen 325mg tablet PO PRN ×3
[2018-01-27] MEDS ORDERED: morphine 2 MG/ML inj. syringe IV PRN
[2018-01-27] MEDS ORDERED: aspirin 325mg tablet PO ONE
[2018-01-27] MEDS ORDERED: mag hydrox/Alum hydrox/simeth 30ml oral suspension PO PRN
[2018-01-27] MEDS ORDERED: morphine 4 MG/ML inj SYRINge IV PRN
[2018-01-27] MEDS ORDERED: ondansetron/PF 4mg/2ml inj IV PRN
[2018-01-27] MEDS ORDERED: magnesium hydroxide 30ml (MOM) UD suspension PO PRN ×2 (00:05)
[2018-01-27] MEDS ORDERED: albuterol 2.5 MG/3 ML nebule NEB PRN (00:10)
[2018-01-27] MEDS ORDERED: albuterol 2.5 MG/3 ML nebule NEB SCH (00:10)
[2018-01-27] MEDS: sodium chloride 0.45% 1,000 ML IV SCH ×2 (03:25→20:37)
[2018-01-27 08:15] VITALS: BP 149/100
[2018-01-27] MEDS: docusate sod 100mg capsule PO SCH ×2 (10:12→20:37)
[2018-01-27] MEDS: bumetanide 1mg tablet PO SCH (10:12)
[2018-01-27] MEDS: potassium Cl 20 mEq SR tablet PO SCH (10:13)
[2018-01-27] MEDS: atorvastatin 20mg tablet PO SCH (10:13)
[2018-01-27] MEDS: NIFEdipine XL 30mg tablet PO SCH (10:14)
[2018-01-27] MEDS: labetalol 100mg tablet PO SCH ×3 (10:14→20:38)
[2018-01-27] MEDS ORDERED: CAFFEINE CITRATE 60 MG/3 ML injection vial IV PRN (10:50)
[2018-01-27] MEDS ORDERED: regadenoson 0.4mg/5ml syringe IV ONE (10:50)
[2018-01-27] MEDS ORDERED: metoprolol tartrate 1mg/ml inj IV PRN (10:50)
[2018-01-27] MEDS ORDERED: nitroGLYCERIN 0.4mg SUBLingual tab SL PRN ×2 (10:50)
[2018-01-27 11:00] VITALS: BP 123/87
[2018-01-27] MEDS: pantoprazole 40mg Tablet.DR PO SCH (11:15)
[2018-01-27 15:00] VITALS: BP 127/85
[2018-01-27 19:00] VITALS: BP 129/90
[2018-01-27 22:00] VITALS: BP 142/94
[2018-01-28 03:00] VITALS: BP 155/93
[2018-01-28 06:00] VITALS: BP 140/89
[2018-01-28 07:41] LABS: ALBUMIN 2.8 G/DL (3.4-5.0); ANION GAP 3 (8-16); BLOOD UREA NITROGEN 28 MG/DL (7-18); BUN/CREATININE RATIO 11.3 (5.4-32.0); CALCIUM 8.3 MG/DL (8.5-10.1); CHLORIDE 105 MMOL/L (99-107); CREATININE 2.47 MG/DL (0.60-1.10); GLUCOSE 141 MG/DL (70-104); POTASSIUM 3.8 MMOL/L (3.5-5.1); SODIUM 142 MMOL/L (135-145); TOTAL CARBON DIOXIDE 34.1 MMOL/L (24-32); eGFR 28 ML/MIN
[2018-01-28] MEDS: atorvastatin 20mg tablet PO SCH (08:22)
[2018-01-28] MEDS: docusate sod 100mg capsule PO SCH (08:22)
[2018-01-28] MEDS: bumetanide 1mg tablet PO SCH (08:22)
[2018-01-28] MEDS: pantoprazole 40mg Tablet.DR PO SCH (08:23)
[2018-01-28] MEDS: labetalol 100mg tablet PO SCH (08:24)
[2018-01-28] MEDS: potassium Cl 20 mEq SR tablet PO SCH (08:24)
[2018-01-28] MEDS: NIFEdipine XL 30mg tablet PO SCH (08:25)
[2018-01-28] MEDS ORDERED: NITR0.4T51 SL (11:34)
== END 2018-01-28 13:20 | disposition home or self-care (01) ==
LOC: ER 19:45 → ED HOLD 23:58 → PCU 3S 01-27 08:02
PROVIDERS: ADMIT Emergency Medicine; ATTEND Internal Medicine
DX: I25.110 Atherosclerotic heart disease of native coronary artery with unstable angina pectoris (principal); I13.0 Hypertensive heart and chronic kidney disease with heart failure and stage 1 through stage 4 chronic kidney disease, or unspecified chronic kidney disease; E11.22 Type 2 diabetes mellitus with diabetic chronic kidney disease; I50.22 Chronic systolic (congestive) heart failure; N18.9 Chronic kidney disease, unspecified; N17.9 Acute kidney failure, unspecified; E78.5 Hyperlipidemia, unspecified; I71.2 Thoracic aortic aneurysm, without rupture; G47.33 Obstructive sleep apnea (adult) (pediatric); J43.9 Emphysema, unspecified; Z87.891 Personal history of nicotine dependence; Z90.49 Acquired absence of other specified parts of digestive tract
CPT/HCPCS: 36415; 71045; 80048; 80053; 82948; 84484; 85025; 85610; 85730; 87070; 93005; 93306; 99285; G0378; J7030

== ENCOUNTER 2018-02-18 18:26 | Emergency (ER) | payer MEDICAID ==
[~2018-02-18] VITALS: Ht 167.6 cm; Wt 98.4 kg
[~2018-02-18 18:26] MED LIST changes: +BUME1TAB4 PO; -FURO-149 PO; -GUAI-178 PO; -ISOS10TA8 PO; -LISI-600 PO; -LOSA50TA3 PO; +NIFE90TA2 PO; +NITR0.4T51 SL; -SIME80TA16 PO; -SUCR1TAB34 PO
[2018-02-18 18:32] VITALS: BP 156/99
== END 2018-02-18 20:22 | disposition home or self-care (01) ==
LOC: ER 18:27
DX: R60.0 Localized edema (principal); I11.0 Hypertensive heart disease with heart failure; I50.9 Heart failure, unspecified; E78.00 Pure hypercholesterolemia, unspecified; E11.9 Type 2 diabetes mellitus without complications; Z90.49 Acquired absence of other specified parts of digestive tract; Z79.899 Other long term (current) drug therapy
CPT/HCPCS: 99281